=== PATIENT | female | born 1935 | race Caucasian/White ===

== ENCOUNTER → 2017-05-23 | Outpatient (CLI) | payer MEDICARE ==
[2015-05-16 22:39] VITALS: BP 102/82
[~2017-05-23] MED LIST: ASPIRIN E.C. 8181 MG PO; CIPRO 250MG TA250 MG PO; LEVACET PO; LEXAPRO10 MG PO; LISINOPRIL20 MG PO; PROBIOTIC1 EAC1 PO; TAMOXIFEN CITRA20 MG PO
== END ==
LOC: RAD 09:54
DX: M50.323 Other cervical disc degeneration at C6-C7 level (principal); M25.511 Pain in right shoulder; W19.XXXA Unspecified fall, initial encounter; Y92.009 Unspecified place in unspecified non-institutional (private) residence as the place of occurrence of the external cause

== ENCOUNTER 2017-07-06 15:00 | Outpatient (RCR) | payer MEDICARE, OTHER ==
[2015-05-16 22:39] VITALS: BP 102/82
== END 2017-07-06 15:30 | disposition home or self-care (01) ==
LOC: PT 15:00
DX: M75.21 Bicipital tendinitis, right shoulder (principal)
CPT/HCPCS: G8985-GP

== ENCOUNTER → 2018-02-06 | Outpatient (CLI) | payer MEDICARE, OTHER ==
[2015-05-16 22:39] VITALS: BP 102/82
== END ==
LOC: CARDLAB 08:54 → CARDREHAB 15:50
DX: I08.1 Rheumatic disorders of both mitral and tricuspid valves (principal)

== ENCOUNTER → 2018-03-29 | Outpatient (CLI) | payer MEDICARE, OTHER ==
[2015-05-16 22:39] VITALS: BP 102/82
== END ==
LOC: CARDLAB 09:12 → CARDREHAB 09:52
DX: R06.09 Other forms of dyspnea (principal); Z86.79 Personal history of other diseases of the circulatory system; Z82.49 Family history of ischemic heart disease and other diseases of the circulatory system
CPT/HCPCS: A9500

== ENCOUNTER → 2020-01-08 | Outpatient (CLI) | payer MEDICARE, OTHER ==
[2015-05-16 22:39] VITALS: BP 102/82
[2020-01-08 09:45] LABS: MAGNESIUM 2.12 mg/dL (1.60-2.60)
[2020-01-14 08:21] LABS: VITAMIN B1 127 nmol/L (70-180)
[2020-01-16 13:58] LABS: A/G RATIO (PEP) 1.19; BETA GLOBULINS (PEP) 0.7
== END ==
LOC: LAB 08:57
PROVIDERS: Psychiatry & Neurology Neurology
DX: G62.9 Polyneuropathy, unspecified (principal); E61.1 Iron deficiency; E61.2 Magnesium deficiency; E53.1 Pyridoxine deficiency; E53.8 Deficiency of other specified B group vitamins; E53.9 Vitamin B deficiency, unspecified; E55.9 Vitamin D deficiency, unspecified; R73.02 Impaired glucose tolerance (oral); Z79.899 Other long term (current) drug therapy

== ENCOUNTER → 2020-05-11 | Outpatient (CLI) | payer MEDICARE ==
[2015-05-16 22:39] VITALS: BP 102/82
== END ==
LOC: MAMMO 13:00 → RAD 13:00
DX: Z13.820 Encounter for screening for osteoporosis (principal); M81.0 Age-related osteoporosis without current pathological fracture

== ENCOUNTER 2020-06-26 14:25 | Emergency (ER) | payer MEDICARE ==
[2020-06-26 15:20] LABS: HEMATOCRIT 38.1 % (37.0-47.0); HEMOGLOBIN 12.7 g/dL (12.5-16.0); MEAN CELL VOLUME 91 fl (78-100); MEAN CORPUSCULAR HEMOGLOBIN 30 pg (27-31); MEAN CORPUSCULAR HGB CONC 33 g/dL (33-37); MEAN PLATELET VOLUME 9.4 fl (7.4-10.4); PLATELET COUNT 226 K/mm3 (130-400); RED BLOOD COUNT 4.19 M/mm3 (4.10-5.30); RED CELL DISTRIBUTION WIDTH 13.1 % (11.5-14.5); WHITE BLOOD COUNT 5.3 K/mm3 (4.8-10.8)
[2020-06-26 15:31] LABS: POTASSIUM 3.4 mmol/L (3.5-5.1)
[2020-06-26 15:33] LABS: TOTAL PROTEIN 6.8 g/dL (6.2-8.1)
[2020-06-26 15:35] LABS: TOTAL BILIRUBIN 0.4 mg/dL (0.2-1.2)
[2020-06-26 15:53] LABS: BAND 12 % (0-10); LYMPHOCYTE 9 % (20-51); MONOCYTE 2 % (3-10); NEUTROPHILS 72 % (42-75)
[2020-06-26] MEDS ORDERED: FLUTICASON0.05 MG/AC NS (18:12)
[2020-06-26] MEDS ORDERED: LATANOPROST 0.7.5 ML OU (18:13)
[2020-06-26] MEDS ORDERED: ATIVAN0.5 MG PO (18:14)
[2020-06-26] MEDS ORDERED: PRILOSEC 20MG20 MG PO (18:14)
[2020-06-26] MEDS ORDERED: CALCIUM CARBON650 M2 PO (18:15)
[2020-06-26] MEDS ORDERED: VITAMIN D3100 MCG PO (18:15)
[2020-06-26 19:37] VITALS: BP 104/70
== END 2020-06-26 20:10 | disposition other institution (70) ==
LOC: ED 14:25
PROVIDERS: Family Medicine
DX: K52.9 Noninfective gastroenteritis and colitis, unspecified (principal); I10 Essential (primary) hypertension; Z20.828 Contact with and (suspected) exposure to other viral communicable diseases; Z90.49 Acquired absence of other specified parts of digestive tract; Z79.82 Long term (current) use of aspirin
CPT/HCPCS: Q9967

== ENCOUNTER 2020-06-26 19:13 | Inpatient (IN) | payer MEDICARE ==
[~2020-06-26] VITALS: Ht 149.9 cm; Wt 43.0 kg
[~2020-06-26 19:13] MED LIST changes: +ATIVAN0.5 MG PO; +CALCIUM CARBON650 M2 PO; +FLUTICASON0.05 MG/AC NS; +LATANOPROST 0.7.5 ML OU; +PRILOSEC 20MG20 MG PO; +VITAMIN D3100 MCG PO
[2020-06-26 20:28] VITALS: BP 104/78
[2020-06-27 02:00] VITALS: BP 108/46
[2020-06-27 05:43] VITALS: BP 91/50; BP 95/54
[2020-06-27 08:49] LABS: EOS # 0.1 (0.04-0.40); EOS % 0.9 % (1.0-5.0); HEMATOCRIT 35.1 % (37.0-47.0); HEMOGLOBIN 11.2 g/dL (12.5-16.0); MEAN CELL VOLUME 92 fl (78-100); MEAN CORPUSCULAR HEMOGLOBIN 29 pg (27-31); MEAN CORPUSCULAR HGB CONC 32 g/dL (33-37); MEAN PLATELET VOLUME 8.9 fl (7.4-10.4); MONO # 0.4 (0.20-0.80); NEU # 6.1 (1.40-6.50); PLATELET COUNT 214 K/mm3 (130-400); RED BLOOD COUNT 3.82 M/mm3 (4.10-5.30); RED CELL DISTRIBUTION WIDTH 13.6 % (11.5-14.5); WHITE BLOOD COUNT 7.6 K/mm3 (4.8-10.8)
[2020-06-27 09:06] LABS: POTASSIUM 3.8 mmol/L (3.5-5.1)
[2020-06-27 09:07] LABS: CALCIUM 8.8 mg/dL (8.3-10.5)
[2020-06-27 10:00] VITALS: BP 95/44
[2020-06-27 14:10] VITALS: BP 98/57
[2020-06-27 18:07] VITALS: BP 125/64
[2020-06-27 21:43] VITALS: BP 133/72
[2020-06-28 01:42] LABS: URINE APPEARANCE CLOUDY; URINE BILIRUBIN NEGATIVE (NEGATIVE); URINE BLOOD TRACE (NEGATIVE); URINE COLOR YELLOW; URINE GLUCOSE NEGATIVE (NEGATIVE); URINE KETONE NEGATIVE (NEGATIVE); URINE LEUKOCYTE ESTERASE NEGATIVE (NEGATIVE); URINE NITRATE NEGATIVE (NEGATIVE); URINE PROTEIN(semi-quant) 1+ mg/dL (NEGATIVE); URINE UROBILINOGEN NORMAL (NORMAL)
[2020-06-28 02:09] VITALS: BP 121/65
[2020-06-28 05:25] VITALS: BP 128/78
[2020-06-28 08:50] LABS: EOS # 0.3 (0.04-0.40); EOS % 4.3 % (1.0-5.0); HEMATOCRIT 34.2 % (37.0-47.0); HEMOGLOBIN 11.1 g/dL (12.5-16.0); LYMPH# 0.9 (1.50-4.00); MEAN CELL VOLUME 91 fl (78-100); MEAN CORPUSCULAR HEMOGLOBIN 30 pg (27-31); MEAN CORPUSCULAR HGB CONC 33 g/dL (33-37); MEAN PLATELET VOLUME 9.7 fl (7.4-10.4); MONO # 0.4 (0.20-0.80); NEU # 4.6 (1.40-6.50); PLATELET COUNT 194 K/mm3 (130-400); RED BLOOD COUNT 3.76 M/mm3 (4.10-5.30); RED CELL DISTRIBUTION WIDTH 13.3 % (11.5-14.5); WHITE BLOOD COUNT 6.1 K/mm3 (4.8-10.8)
[2020-06-28 08:54] LABS: ALBUMIN 3.4 g/dL (3.4-4.8); POTASSIUM 4.3 mmol/L (3.5-5.1)
[2020-06-28 08:55] LABS: CALCIUM 8.2 mg/dL (8.3-10.5)
[2020-06-28 08:58] LABS: TOTAL BILIRUBIN 0.5 mg/dL (0.2-1.2)
[2020-06-28 09:43] VITALS: BP 119/68
[2020-06-28 13:49] VITALS: BP 117/69
[2020-06-28] MEDS ORDERED: CIPRO500 M1 PO (15:07)
[2020-06-28] MEDS ORDERED: FLAGYL500 M1 PO (15:08)
== END 2020-06-28 15:45 | disposition home or self-care (01) | DRG 392 ==
LOC: MED/SURG 19:13
PROVIDERS: Internal Medicine; ADMIT Family Medicine
DX: K52.9 Noninfective gastroenteritis and colitis, unspecified (principal); K57.92 Diverticulitis of intestine, part unspecified, without perforation or abscess without bleeding; I10 Essential (primary) hypertension; E86.0 Dehydration; Z79.82 Long term (current) use of aspirin; Z85.3 Personal history of malignant neoplasm of breast; M25.512 Pain in left shoulder
CPT/HCPCS: C9113; J0744; J1885; J3480; J3490

== ENCOUNTER → 2021-02-09 | Outpatient (CLI) | payer MEDICARE ==
[~2021-02-09] MED LIST changes: +CIPRO500 M1 PO; +FLAGYL500 M1 PO
== END ==
LOC: RAD 14:08
DX: I67.82 Cerebral ischemia (principal)

== ENCOUNTER → 2021-04-07 | Outpatient (CLI) | payer MEDICARE | LOC: RAD 11:00 → LAB 11:07 → RAD 11:07 | PROVIDERS: Internal Medicine Gastroenterology | DX: K52.831 Collagenous colitis (principal); K21.9 Gastro-esophageal reflux disease without esophagitis; R63.4 Abnormal weight loss | CPT/HCPCS: Q9967 ==

== ENCOUNTER → 2021-05-25 | Outpatient (CLI) | payer MEDICARE | LOC: RAD 08:11 | DX: M19.031 Primary osteoarthritis, right wrist (principal); M85.80 Other specified disorders of bone density and structure, unspecified site; M25.512 Pain in left shoulder; M25.511 Pain in right shoulder ==

== ENCOUNTER → 2021-11-07 | Outpatient (CLI) | payer MEDICARE | LOC: RAD 10:00 → VAS 10:15 | DX: I73.9 Peripheral vascular disease, unspecified (principal) ==

== ENCOUNTER 2021-12-28 09:06 | Outpatient (RCR) | payer MEDICARE | END 2022-01-05 | disposition home or self-care (01) | LOC: OT | DX: G56.00 Carpal tunnel syndrome, unspecified upper limb (principal) ==

== ENCOUNTER 2022-01-10 11:30 | Outpatient (RCR) | payer MEDICARE ==
[2022-01-24] MEDS ORDERED: PRAVASTATIN SOD10 MG PO (01:38)
[2022-01-24] MEDS ORDERED: ZOFRAN ODT4 MG PO (02:28)
== END 2022-01-27 09:39 | disposition home or self-care (01) ==
LOC: OT 11:30
DX: G56.03 Carpal tunnel syndrome, bilateral upper limbs (principal)

== ENCOUNTER 2022-01-23 22:30 | Emergency (ER) | payer MEDICARE ==
[~2022-01-23] VITALS: Ht 149.9 cm; Wt 44.5 kg
[2022-01-23 23:34] LABS: BASO # 0.02 K/mm3 (0.02-0.10); EOS # 0.08 K/mm3 (0.04-0.40); EOS % 1.2 % (1.0-5.0); HEMATOCRIT 38.3 % (37.0-47.0); LYMPH# 1.57 K/mm3 (1.50-4.00); MEAN CELL VOLUME 89 fl (78-100); MEAN CORPUSCULAR HEMOGLOBIN 30 pg (27-31); MEAN CORPUSCULAR HGB CONC 34 g/dL (33-37); MEAN PLATELET VOLUME 9.5 fl (7.4-10.4); MONO # 0.43 K/mm3 (0.20-0.80); PLATELET COUNT 219 K/mm3 (130-400); RED BLOOD COUNT 4.32 M/mm3 (4.10-5.30); RED CELL DISTRIBUTION WIDTH 13.1 % (11.5-14.5); WHITE BLOOD COUNT 6.8 K/mm3 (4.8-10.8)
[2022-01-23 23:35] LABS: ALBUMIN 4.5 g/dL (3.4-4.8); POTASSIUM 4.6 mmol/L (3.5-5.1); SODIUM 136 mmol/L (136-145)
[2022-01-23 23:36] LABS: CALCIUM 9.9 mg/dL (8.3-10.5)
[2022-01-23 23:37] LABS: GLUCOSE 96 mg/dL (65-105)
[2022-01-23 23:39] LABS: CARBON DIOXIDE 24 mmol/L (23-31); TOTAL BILIRUBIN 0.5 mg/dL (0.2-1.2)
[2022-01-23 23:43] LABS: AST-SGOT 23 U/L (5-34)
[2022-01-23 23:44] LABS: ALT/SGPT 14 U/L (0-55); LIPASE 34 U/L (8-78)
[2022-01-24] LABS: TROPONIN-I < 0.030 ng/mL (<0.030)
[2022-01-24] MEDS ORDERED: PRAVASTATIN SOD10 MG PO (01:38)
[2022-01-24 02:02] LABS: URINE WBC 0 /hpf (0-3)
[2022-01-24 02:12] LABS: URINE APPEARANCE CLEAR; URINE BILIRUBIN NEGATIVE (NEGATIVE); URINE BLOOD 50 ery/uL (NEGATIVE); URINE COLOR YELLOW; URINE GLUCOSE NEGATIVE (NEGATIVE); URINE KETONE NEGATIVE (NEGATIVE); URINE LEUKOCYTE ESTERASE NEGATIVE (NEGATIVE); URINE NITRATE NEGATIVE (NEGATIVE); URINE PROTEIN(semi-quant) NEGATIVE (NEGATIVE); URINE UROBILINOGEN NORMAL (NORMAL)
[2022-01-24] MEDS ORDERED: ZOFRAN ODT4 MG PO (02:28)
[2022-01-24 02:55] VITALS: BP 127/73
== END 2022-01-24 02:56 | disposition home or self-care (01) ==
LOC: ED 22:30
PROVIDERS: Nurse Practitioner
DX: A08.4 Viral intestinal infection, unspecified (principal); Z90.49 Acquired absence of other specified parts of digestive tract; Z20.822 Contact with and (suspected) exposure to COVID-19
CPT/HCPCS: J2405; J7040; Q9967

== ENCOUNTER → 2022-03-28 | Outpatient (CLI) | payer MEDICARE ==
[~2022-03-28] MED LIST changes: +PRAVASTATIN SOD10 MG PO; +ZOFRAN ODT4 MG PO
[2022-03-28 12:44] LABS: BASO # 0.04 K/mm3 (0.02-0.10); EOS # 0.07 K/mm3 (0.04-0.40); EOS % 1.7 % (1.0-5.0); HEMATOCRIT 37.1 % (37.0-47.0); HEMOGLOBIN 12.2 g/dL (12.5-16.0); MEAN CELL VOLUME 91 fl (78-100); MEAN CORPUSCULAR HEMOGLOBIN 30 pg (27-31); MEAN CORPUSCULAR HGB CONC 33 g/dL (33-37); MEAN PLATELET VOLUME 8.7 fl (7.4-10.4); MONO # 0.51 K/mm3 (0.20-0.80); NEU # 2.34 K/mm3 (1.40-6.50); PLATELET COUNT 231 K/mm3 (130-400); RED CELL DISTRIBUTION WIDTH 13.8 % (11.5-14.5); WHITE BLOOD COUNT 4.1 K/mm3 (4.8-10.8)
[2022-03-28 12:53] LABS: ALBUMIN 4.2 g/dL (3.4-4.8); POTASSIUM 4.6 mmol/L (3.5-5.1)
[2022-03-28 12:54] LABS: CALCIUM 9.4 mg/dL (8.3-10.5)
[2022-03-28 12:55] LABS: TOTAL PROTEIN 7.2 g/dL (6.2-8.1)
[2022-03-28 12:57] LABS: TOTAL BILIRUBIN 0.5 mg/dL (0.2-1.2)
[2022-03-28 13:22] LABS: URINE APPEARANCE CLEAR; URINE BILIRUBIN NEGATIVE (NEGATIVE); URINE BLOOD 50 ery/uL (NEGATIVE); URINE COLOR YELLOW; URINE GLUCOSE NEGATIVE (NEGATIVE); URINE KETONE NEGATIVE (NEGATIVE); URINE LEUKOCYTE ESTERASE TRACE (NEGATIVE); URINE NITRATE NEGATIVE (NEGATIVE); URINE PROTEIN(semi-quant) NEGATIVE (NEGATIVE); URINE UROBILINOGEN NORMAL (NORMAL)
== END ==
LOC: LAB 11:51
PROVIDERS: Physician Assistant
DX: Z13.29 Encounter for screening for other suspected endocrine disorder (principal); Z13.220 Encounter for screening for lipoid disorders; K90.9 Intestinal malabsorption, unspecified

== ENCOUNTER → 2022-03-31 | Outpatient (CLI) | payer MEDICARE ==
[~2022-03-31] VITALS: Ht 149.9 cm; Wt 44.5 kg
[2022-03-31 10:50] VITALS: BP 167/80
== END ==
LOC: AMSURD 10:41
DX: Z79.899 Other long term (current) drug therapy (principal)
CPT/HCPCS: J0897

== ENCOUNTER → 2022-08-18 | Outpatient (CLI) | payer MEDICARE ==
[2022-08-18 09:37] LABS: POTASSIUM 4.1 mmol/L (3.5-5.1)
[2022-08-18 09:38] LABS: CALCIUM 9.4 mg/dL (8.3-10.5)
== END ==
LOC: LAB 09:10
PROVIDERS: Internal Medicine Gastroenterology
DX: K52.831 Collagenous colitis (principal)

== ENCOUNTER 2022-10-09 16:50 | Emergency (ER) | payer MEDICARE ==
[~2022-10-09] VITALS: Ht 149.9 cm; Wt 41.4 kg
[2022-10-09 18:36] LABS: BASO # 0.02 K/mm3 (0.02-0.10); EOS # 0.05 K/mm3 (0.04-0.40); EOS % 1.4 % (1.0-5.0); HEMATOCRIT 35.5 % (37.0-47.0); LYMPH# 1.02 K/mm3 (1.50-4.00); MEAN CELL VOLUME 92 fl (78-100); MEAN CORPUSCULAR HEMOGLOBIN 31 pg (27-31); MEAN CORPUSCULAR HGB CONC 34 g/dL (33-37); MEAN PLATELET VOLUME 8.5 fl (7.4-10.4); MONO # 0.64 K/mm3 (0.20-0.80); PLATELET COUNT 216 K/mm3 (130-400); RED BLOOD COUNT 3.87 M/mm3 (4.10-5.30); RED CELL DISTRIBUTION WIDTH 13.3 % (11.5-14.5); WHITE BLOOD COUNT 3.5 K/mm3 (4.8-10.8)
[2022-10-09 18:49] LABS: ALBUMIN 3.9 g/dL (3.4-4.8); SODIUM 145 mmol/L (136-145)
[2022-10-09 18:50] LABS: CALCIUM 8.7 mg/dL (8.3-10.5)
[2022-10-09 18:51] LABS: GLUCOSE 90 mg/dL (65-105); TOTAL PROTEIN 6.5 g/dL (6.2-8.1)
[2022-10-09 18:52] LABS: CARBON DIOXIDE 25 mmol/L (23-31)
[2022-10-09 18:53] LABS: TOTAL BILIRUBIN 0.4 mg/dL (0.2-1.2)
[2022-10-09 18:57] LABS: AST-SGOT 16 U/L (5-34)
[2022-10-09 18:58] LABS: ALT/SGPT 7 U/L (0-55); PROTHROMBIN TIME 10.4 SECONDS (9.0-12.0)
[2022-10-09 18:59] LABS: POTASSIUM 2.9 mmol/L (3.5-5.1)
[2022-10-09 19:13] LABS: TROPONIN-I < 0.030 ng/mL (<0.030)
[2022-10-09 19:50] VITALS: BP 184/100
== END 2022-10-09 19:45 | disposition short-term general hospital (02) ==
LOC: ED 16:50
PROVIDERS: Nurse Practitioner
DX: S06.6X0A Traumatic subarachnoid hemorrhage without loss of consciousness, initial encounter (principal); S00.03XA Contusion of scalp, initial encounter; W01.198A Fall on same level from slipping, tripping and stumbling with subsequent striking against other object, initial encounter
CPT/HCPCS: J3480

== ENCOUNTER 2023-12-04 12:49 | Emergency (ER) | payer MEDICARE ==
[2024-01-23 15:27] LABS: ALBUMIN 3.8 g/dL (3.4-4.8); ALT/SGPT 14 U/L (0-55); AST-SGOT 19 U/L (5-34); CALCIUM 8.9 mg/dL (8.3-10.5); CARBON DIOXIDE 24 mmol/L (23-31); GLUCOSE 80 mg/dL (65-105); SODIUM 129 mmol/L (136-145); TOTAL BILIRUBIN 0.5 mg/dL (0.2-1.2); TOTAL PROTEIN 6.1 g/dL (6.2-8.1); TROPONIN-I < 0.030 ng/mL (0.00-0.033)
[2024-01-23 15:29] LABS: BASO # 0.04 K/mm3 (0.02-0.10); EOS # 0.14 K/mm3 (0.04-0.40); EOS % 3.7 % (1.0-5.0); HEMATOCRIT 32.2 % (37.0-47.0); HEMOGLOBIN 10.9 g/dL (12.5-16.0); LYMPH# 1.31 K/mm3 (1.50-4.00); MEAN CELL VOLUME 89 fl (78-100); MEAN CORPUSCULAR HEMOGLOBIN 30 pg (27-31); MEAN CORPUSCULAR HGB CONC 34 g/dL (33-37); MEAN PLATELET VOLUME 8.9 fl (7.4-10.4); MONO # 0.48 K/mm3 (0.20-0.80); PLATELET COUNT 228 K/mm3 (130-400); RED BLOOD COUNT 3.61 M/mm3 (4.10-5.30); RED CELL DISTRIBUTION WIDTH 13.7 % (11.5-14.5); WHITE BLOOD COUNT 3.8 K/mm3 (4.8-10.8)
[2024-01-23 15:38] LABS: URINE APPEARANCE CLEAR (CLEAR); URINE BILIRUBIN NEGATIVE (NEGATIVE); URINE BLOOD TRACE-INTACT (NEGATIVE); URINE COLOR YELLOW (YELLOW); URINE GLUCOSE NEGATIVE (NEGATIVE); URINE KETONE NEGATIVE (NEGATIVE); URINE LEUKOCYTE ESTERASE NEGATIVE (NEGATIVE); URINE NITRATE NEGATIVE (NEGATIVE); URINE PROTEIN(semi-quant) NEGATIVE (NEGATIVE); URINE WBC 0-1 /hpf (0-3)
[2026-12-03] MEDS ORDERED: Meclizine 12.5 MG TAB PO ONE (10:42)
[2026-12-03] MEDS ORDERED: NS 1,000 ML IV ONE (10:42)
== END 2023-12-04 17:40 | disposition home or self-care (01) ==
LOC: ED 12:49
PROVIDERS: Physician Assistant
DX: I95.1 Orthostatic hypotension (principal); D64.9 Anemia, unspecified; E87.1 Hypo-osmolality and hyponatremia
CPT/HCPCS: J7030

== ENCOUNTER → 2023-12-12 | Outpatient (CLI) | payer MEDICARE ==
[2024-01-31 11:22] LABS: BASO # 0.06 K/mm3 (0.02-0.10); EOS # 0.11 K/mm3 (0.04-0.40); EOS % 2.2 % (1.0-5.0); HEMOGLOBIN 12.1 g/dL (12.5-16.0); LYMPH# 1.44 K/mm3 (1.50-4.00); MEAN CELL VOLUME 90 fl (78-100); MEAN CORPUSCULAR HEMOGLOBIN 30 pg (27-31); MEAN CORPUSCULAR HGB CONC 34 g/dL (33-37); MEAN PLATELET VOLUME 8.7 fl (7.4-10.4); MONO # 0.64 K/mm3 (0.20-0.80); NEU # 2.81 K/mm3 (1.40-6.50); PLATELET COUNT 256 K/mm3 (130-400); RED CELL DISTRIBUTION WIDTH 13.5 % (11.5-14.5); WHITE BLOOD COUNT 5.1 K/mm3 (4.8-10.8)
[2024-01-31 11:45] LABS: ALBUMIN 4.4 g/dL (3.4-4.8); CALCIUM 9.8 mg/dL (8.3-10.5); TOTAL BILIRUBIN 0.5 mg/dL (0.2-1.2); TOTAL PROTEIN 7.3 g/dL (6.2-8.1)
== END ==
LOC: LAB 14:54
PROVIDERS: Physician Assistant
DX: Z13.29 Encounter for screening for other suspected endocrine disorder (principal); D64.9 Anemia, unspecified; E87.1 Hypo-osmolality and hyponatremia; E87.5 Hyperkalemia; K90.9 Intestinal malabsorption, unspecified

== ENCOUNTER → 2024-01-04 | Outpatient (CLI) | payer MEDICARE ==
[2024-01-04 10:59] LABS: CALCIUM 9.6 mg/dL (8.3-10.5)
== END ==
LOC: LAB 10:05
PROVIDERS: Physician Assistant
DX: E87.1 Hypo-osmolality and hyponatremia (principal); K90.9 Intestinal malabsorption, unspecified

== ENCOUNTER → 2024-01-15 | Outpatient (CLI) | payer MEDICARE | LOC: LAB 01-04 10:08 | DX: D64.9 Anemia, unspecified (principal); K92.1 Melena ==

== ENCOUNTER 2024-04-17 22:13 | Emergency (ER) | payer MEDICARE ==
[~2024-04-17] VITALS: Ht 149.9 cm; Wt 40.9 kg
[2024-04-17] MEDS ORDERED: Polyethylene Glycol 3350 Powder 17 GM PACKET PO ONE (23:00)
[2024-04-17 23:04] LABS: BASO # 0.04 K/mm3 (0.02-0.10); EOS % 3.7 % (1.0-5.0); HEMATOCRIT 39.1 % (37.0-47.0); LYMPH# 1.32 K/mm3 (1.50-4.00); MEAN CELL VOLUME 92 fl (78-100); MEAN CORPUSCULAR HEMOGLOBIN 31 pg (27-31); MEAN CORPUSCULAR HGB CONC 33 g/dL (33-37); MEAN PLATELET VOLUME 9.1 fl (7.4-10.4); MONO # 0.64 K/mm3 (0.20-0.80); NEU # 3.25 K/mm3 (1.40-6.50); PLATELET COUNT 206 K/mm3 (130-400); RED BLOOD COUNT 4.26 M/mm3 (4.10-5.30); RED CELL DISTRIBUTION WIDTH 13.3 % (11.5-14.5); WHITE BLOOD COUNT 5.5 K/mm3 (4.8-10.8)
[2024-04-17 23:11] LABS: ALBUMIN 4.7 g/dL (3.4-4.8)
[2024-04-17 23:13] LABS: CALCIUM 10.6 mg/dL (8.3-10.5)
[2024-04-17 23:14] LABS: TOTAL PROTEIN 7.9 g/dL (6.2-8.1)
[2024-04-17 23:16] LABS: TOTAL BILIRUBIN 0.5 mg/dL (0.2-1.2)
[2024-04-18] MEDS ORDERED: Ondansetron 4 MG/2 ML VIAL IV ONE (00:45)
[2024-04-18] MEDS ORDERED: NS 1,000 ML IV SCH (00:45)
[2024-04-18] MEDS ORDERED: Sodium Phosphates Rectal Enema 133 ML BOTTLE RC ONE (01:30)
[2024-04-18 08:16] VITALS: BP 119/77
== END 2024-04-18 08:19 | disposition home or self-care (01) ==
LOC: ED 22:13
PROVIDERS: Nurse Practitioner
DX: K59.00 Constipation, unspecified (principal); R11.2 Nausea with vomiting, unspecified; Z90.12 Acquired absence of left breast and nipple; Z90.49 Acquired absence of other specified parts of digestive tract; Z79.899 Other long term (current) drug therapy; Z79.82 Long term (current) use of aspirin
CPT/HCPCS: J2405; J7030

== ENCOUNTER 2024-08-29 23:03 | Emergency (ER) | payer MEDICARE ==
[2024-08-29] MEDS ORDERED: DONEPEZIL HCL5 M1 PO (23:16)
[2024-08-29] MEDS ORDERED: ALPRAZOLAM0.25 MG PO (23:16)
[2024-08-29] MEDS ORDERED: fentaNYL 100 MCG/2 ML VIAL IV PRN (23:30)
[2024-08-29] MEDS ORDERED: Ondansetron 4 MG/2 ML VIAL IV PRN (23:30)
[2024-08-29 23:47] LABS: BASO # 0.04 K/mm3 (0.02-0.10); EOS # 0.13 K/mm3 (0.04-0.40); EOS % 2.7 % (1.0-5.0); HEMATOCRIT 40.2 % (37.0-47.0); HEMOGLOBIN 13.4 g/dL (12.5-16.0); LYMPH# 1.54 K/mm3 (1.50-4.00); MEAN CELL VOLUME 92 fl (78-100); MEAN CORPUSCULAR HEMOGLOBIN 31 pg (27-31); MEAN CORPUSCULAR HGB CONC 33 g/dL (33-37); MEAN PLATELET VOLUME 9.3 fl (7.4-10.4); MONO # 0.68 K/mm3 (0.20-0.80); NEU # 2.47 K/mm3 (1.40-6.50); PLATELET COUNT 219 K/mm3 (130-400); RED BLOOD COUNT 4.37 M/mm3 (4.10-5.30); RED CELL DISTRIBUTION WIDTH 13.3 % (11.5-14.5); WHITE BLOOD COUNT 4.9 K/mm3 (4.8-10.8)
[2024-08-29 23:51] LABS: ALBUMIN 4.6 g/dL (3.4-4.8)
[2024-08-29 23:52] LABS: CALCIUM 10.3 mg/dL (8.3-10.5)
[2024-08-29 23:53] LABS: TOTAL PROTEIN 8.2 g/dL (6.2-8.1)
[2024-08-29 23:55] LABS: TOTAL BILIRUBIN 0.6 mg/dL (0.2-1.2)
[2024-08-30] MEDS ORDERED: Iohexol 300 - 100 ML VIAL IV ONE (00:19)
[2024-08-30] MEDS ORDERED: NS 100 ML IV SCH (00:19)
[2024-08-30 00:41] LABS: URINE APPEARANCE CLEAR (CLEAR); URINE BILIRUBIN NEGATIVE (NEGATIVE); URINE BLOOD 1+ (NEGATIVE); URINE COLOR YELLOW (YELLOW); URINE GLUCOSE NEGATIVE (NEGATIVE); URINE KETONE NEGATIVE (NEGATIVE); URINE LEUKOCYTE ESTERASE 1+ (NEGATIVE); URINE NITRATE NEGATIVE (NEGATIVE); URINE PROTEIN(semi-quant) NEGATIVE (NEGATIVE)
[2024-08-30] MEDS ORDERED: fentaNYL 100 MCG/2 ML VIAL IV ONE (01:15)
[2024-08-30] MEDS ORDERED: cefTRIAXone 1 G in Water For Injection,Sterile 10 ML IV ONE (01:15)
[2024-08-30 02:20] VITALS: BP 157/84
== END 2024-08-30 02:20 | disposition short-term general hospital (02) ==
LOC: ED 23:03
PROVIDERS: Nurse Practitioner
DX: N39.0 Urinary tract infection, site not specified (principal); Q41.9 Congenital absence, atresia and stenosis of small intestine, part unspecified; Z90.49 Acquired absence of other specified parts of digestive tract; Z85.3 Personal history of malignant neoplasm of breast
CPT/HCPCS: J0696; J2405; J3010; Q9967